=== PATIENT | female | born 2005 | race Caucasian/White ===

== ENCOUNTER 2024-03-16 13:35 | Emergency (ER) | payer OTHER ==
[~2024-03-16] VITALS: Ht 162.6 cm; Wt 64.8 kg
[2024-03-16] MEDS ORDERED: PNV1TABL16 PO (13:51)
[2024-03-16] MEDS ORDERED: COLA100C5 PO (13:51)
[2024-03-16] MEDS ORDERED: [UNRECOGNIZED DRUG - CODE] PO (13:51)
[2024-03-16 14:24] LABS: APPEARANCE, URINE CLEAR (CLEAR); BACTERIA, URINE AUTO 1+ (NEGATIVE); BILIRUBIN, URINE AUTO NEGATIVE (NEGATIVE); BLOOD, URINE BLOOD 1+ (NEGATIVE); COLOR, URINE STRAW (YELLOW); GLUCOSE, URINE (UA) AUTO NEGATIVE (NEGATIVE); KETONE, URINE AUTO NEGATIVE (NEGATIVE); LEUKOCYTE ESTERASE, URINE AUTO NEGATIVE (NEGATIVE); NITRITE, URINE AUTO NEGATIVE (NEGATIVE); PROTEIN, URINE AUTO NEGATIVE (NEGATIVE); RBC, URINE AUTO 1 /HPF (0-3); SPECIFIC GRAVITY URINE AUTO 1.006 (1.002-1.035); SQUAMOUS EPITHELIAL CELL UR AU 2 /HPF (0-6); UROBILINOGEN, URINE AUTO 0.2 mg/dL (0.0-2.0); WBC, URINE AUTO 2 /HPF (0-3)
[2024-03-16 14:25] LABS: BASO % 0.2 % (0.0-1.0); EOS % 0.5 % (0.0-3.0); HEMATOCRIT 45.6 % (36.0-47.0); HEMOGLOBIN 15.4 g/dl (12.0-15.5); LYMPH # 1.4 10^3/uL (1.5-5.0); LYMPH % 21.5 % (24.0-44.0); MEAN CORPUSCULAR HEMOGLOBIN 29.8 pg (27.0-33.0); MEAN CORPUSCULAR HGB CONC 33.8 g/dl (32.0-36.5); MEAN CORPUSCULAR VOLUME 88.2 fl (80.0-96.0); MONO # 0.4 10^3/uL (0.0-0.8); MONO % 5.5 % (2.0-8.0); NEUTROPHILS # 4.6 10^3/uL (1.5-8.5); PLATELET COUNT, AUTOMATED 209 10^3/uL (150-450); RED BLOOD COUNT 5.17 10^6/uL (4.00-5.40); WHITE BLOOD COUNT 6.3 10^3/uL (4.0-10.0)
[2024-03-16 14:47] LABS: BLOOD UREA NITROGEN 11 MG/DL (9-23); CALCIUM LEVEL 10.1 MG/DL (8.5-10.1); CARBON DIOXIDE LEVEL 26 MMOL/L (20-31); CHLORIDE LEVEL 106 MMOL/L (98-107); CREATININE FOR GFR 0.72 MG/DL (0.55-1.30); GLUCOSE, FASTING 82 MG/DL (60-100); POTASSIUM SERUM 4.2 MMOL/L (3.5-5.1); SODIUM LEVEL 137 MMOL/L (136-145)
[2024-03-16 15:03] LABS: HCG, SERUM QUANTITATIVE 45058.8 MIU/ML (<4.2)
[2024-03-16 15:29] VITALS: BP 119/55; TEMP 99.3; O2SAT 98
== END 2024-03-16 16:38 | disposition home or self-care (01) ==
LOC: M ED 13:35
DX: O20.8 Other hemorrhage in early pregnancy (principal)

== ENCOUNTER 2024-03-17 01:37 | Emergency (ER) | payer OTHER ==
[~2024-03-17] VITALS: Ht 162.6 cm; Wt 64.6 kg
[~2024-03-17 01:37] MED LIST: COLA100C5 PO; PNV1TABL16 PO; [UNRECOGNIZED DRUG - CODE] PO
[2024-03-17 01:39] VITALS: TEMP 97.1
[2024-03-17 02:40] LABS: BASO % 0.3 % (0.0-1.0); EOS # 0.1 10^3/uL (0.0-0.5); HEMATOCRIT 39.6 % (36.0-47.0); LYMPH # 1.9 10^3/uL (1.5-5.0); MEAN CORPUSCULAR HEMOGLOBIN 30.4 pg (27.0-33.0); MEAN CORPUSCULAR HGB CONC 35.4 g/dl (32.0-36.5); MEAN CORPUSCULAR VOLUME 85.9 fl (80.0-96.0); MONO # 0.6 10^3/uL (0.0-0.8); MONO % 6.5 % (2.0-8.0); NEUTROPHILS # 6.2 10^3/uL (1.5-8.5); NEUTROPHILS % 69.9 % (36.0-66.0); PLATELET COUNT, AUTOMATED 206 10^3/uL (150-450); RED BLOOD COUNT 4.61 10^6/uL (4.00-5.40); WHITE BLOOD COUNT 8.8 10^3/uL (4.0-10.0)
[2024-03-17] MEDS: ONDANSETRON 4MG 2ML VIAL IV ONE (03:59)
[2024-03-17] MEDS: MORPHINE 4 MG/ML 1ML VIAL IV PRN (04:00)
[2024-03-17 05:00] VITALS: BP 114/58; O2SAT 97
[2024-03-17] MEDS: OXYCODONE/APAP 5MG/325MG(HOME DOSE PACK) PO ONE (05:08)
== END 2024-03-17 05:24 | disposition home or self-care (01) ==
LOC: M ED 01:37
DX: O03.4 Incomplete spontaneous abortion without complication (principal)
CPT/HCPCS: 76801; 84702; 85025; 93976; 96374; 96375; 99284; J2405

== ENCOUNTER 2024-04-06 19:27 | Emergency (ER) | payer OTHER ==
[~2024-04-06] VITALS: Ht 162.6 cm; Wt 66.7 kg
[2024-04-06 19:28] VITALS: TEMP 97.7
[2024-04-06 20:00] LABS: BASO % 0.4 % (0.0-1.0); EOS # 0.1 10^3/uL (0.0-0.5); EOS % 1.7 % (0.0-3.0); HEMATOCRIT 39.7 % (36.0-47.0); HEMOGLOBIN 13.4 g/dl (12.0-15.5); LYMPH # 2.1 10^3/uL (1.5-5.0); LYMPH % 29.2 % (24.0-44.0); MEAN CORPUSCULAR HEMOGLOBIN 29.9 pg (27.0-33.0); MEAN CORPUSCULAR HGB CONC 33.8 g/dl (32.0-36.5); MEAN CORPUSCULAR VOLUME 88.6 fl (80.0-96.0); MONO # 0.5 10^3/uL (0.0-0.8); MONO % 6.6 % (2.0-8.0); NEUTROPHILS # 4.4 10^3/uL (1.5-8.5); NEUTROPHILS % 61.8 % (36.0-66.0); PLATELET COUNT, AUTOMATED 219 10^3/uL (150-450); RED BLOOD COUNT 4.48 10^6/uL (4.00-5.40); WHITE BLOOD COUNT 7.1 10^3/uL (4.0-10.0)
[2024-04-06 20:23] LABS: LIPASE 36 U/L (12-53)
[2024-04-06] MEDS: ONDANSETRON 4MG 2ML VIAL IV ONE (20:27)
[2024-04-06] MEDS: KETOROLAC 30 MG/ML 1ML VIAL IV ONE (20:28)
[2024-04-06 20:31] LABS: ALBUMIN 3.7 G/DL (3.2-5.2); ALKALINE PHOSPHATASE 42 U/L (35-104); ALT/SGPT 68 U/L (7.0-40); AST/SGOT 130 U/L (<34); BILIRUBIN,DIRECT < 0.1 MG/DL (<0.4); BILIRUBIN,TOTAL 0.3 MG/DL (0.3-1.2); BLOOD UREA NITROGEN 14 MG/DL (9-23); CALCIUM LEVEL 9.5 MG/DL (8.5-10.1); CARBON DIOXIDE LEVEL 26 MMOL/L (20-31); CHLORIDE LEVEL 109 MMOL/L (98-107); CREATININE FOR GFR 0.78 MG/DL (0.55-1.30); GLUCOSE, FASTING 80 MG/DL (60-100); POTASSIUM SERUM 3.6 MMOL/L (3.5-5.1); SODIUM LEVEL 142 MMOL/L (136-145); TOTAL PROTEIN 6.6 G/DL (5.7-8.2)
[2024-04-06] MEDS ORDERED: ISOVUE-370 76% 100ML VIAL As Ordered ONE (20:41)
[2024-04-06 21:07] LABS: HCG, SERUM QUANTITATIVE 79.7 MIU/ML (<4.2)
[2024-04-06 21:09] LABS: Trichomonas vaginalis (AMP) NOT DETECTED (NEGATIVE)
[2024-04-06 21:32] LABS: GC DNA AMPLIFICATION NEGATIVE (NEGATIVE)
[2024-04-06] MEDS: METOCLOPRAMIDE INJ 10MG/2ML VIAL IV ONE (23:06)
[2024-04-06] MEDS: ACETAMINOPHEN *IV* 1,000 MG in IV 1 EA IV ONE (23:12)
[2024-04-06] MEDS ORDERED: ONDA-282 PO (23:58)
[2024-04-06] MEDS ORDERED: TRAM50TA2 PO (23:58)
[2024-04-07] MEDS ORDERED: TRAM50TA2 PO
[2024-04-07] MEDS: ONDANSETRON 4MG ORAL DISINTEGRATING TAB PO ONE (00:14)
[2024-04-07] MEDS: traMADol 50 MG TAB (HOME DOSE PACK) PO ONE (00:15)
[2024-04-07 00:21] VITALS: BP 107/55; O2SAT 100
== END 2024-04-07 00:22 | disposition home or self-care (01) ==
LOC: M ED 19:27
DX: K56.7 Ileus, unspecified (principal); N83.291 Other ovarian cyst, right side; Z87.59 Personal history of other complications of pregnancy, childbirth and the puerperium
CPT/HCPCS: 74177; 80048; 80076; 81001; 83690; 83735; 84702; 85025; 87210; 87661; 87810; 87850; 96365; 96375; 99284; J0131; J1885; J2405; J2765; Q9967

== ENCOUNTER 2025-04-20 14:05 | Emergency (ER) | payer OTHER ==
[~2025-04-20 14:05] MED LIST changes: +ONDA-282 PO; +TRAM50TA2 PO
== END 2025-04-20 14:10 | disposition admitted as inpatient to this hospital (09) ==
LOC: M ED 14:05
DX: Z53.21 Procedure and treatment not carried out due to patient leaving prior to being seen by health care provider (principal)

== ENCOUNTER 2025-04-20 14:14 | Outpatient (CLI) | payer OTHER ==
[~2025-04-20] VITALS: Ht 162.6 cm; Wt 69.6 kg
[2025-04-20] MEDS ORDERED: HOME MED LIST COMPLETE! XX SCH (14:30)
[2025-04-20 14:38] VITALS: BP 122/68
== END 2025-04-20 15:30 | disposition home or self-care (01) ==
LOC: M LDO 14:14
PROVIDERS: ATTEND Obstetrics & Gynecology
DX: O26.892 Other specified pregnancy related conditions, second trimester (principal); N89.8 Other specified noninflammatory disorders of vagina; N64.52 Nipple discharge; Z3A.24 24 weeks gestation of pregnancy
CPT/HCPCS: 59025; G0463